=== PATIENT | male | born 1940 | race Caucasian/White ===

== ENCOUNTER 2017-06-09 22:13 | Inpatient (IN) | payer MEDICARE ==
[~2017-06-09] VITALS: Ht 167.6 cm; Wt 77.3 kg
[~2017-06-09 22:13] MED LIST: ALBUTEROL S5 MG/1 ML PO; ALPRAZOLAM ER3 MG PO; AMBIEN5 MG PO; ASCORBIC ACID500 M2 PO; ASPIR 8181 MG PO; ATORVASTATIN CA40 MG PO; AUGMENTIN 875-1 EACH PO; CARVEDILOL6.25 MG PO; CHLORTHALIDONE25 MG PO; DILAUDID2 MG PO; FIORICET 50-321 EACH PO; FLOMAX0.4 MG PO; LEVAQUIN750 MG PO; LIPITOR40 MG PO; LISINOPRIL20 MG PO; LISINOPRIL40 MG PO; MAGNESIUM 300300 MG PO; MORPHINE SULFAT15 M1 PO; MORPHINE SULFAT15 M3 PO; MORPHINE SULFAT30 M1 PO; MS CONTIN30 MG PO; MULTI FOR HIM1 EACH PO; NORCO 7.5-3251 EACH PO; NORVASC10 MG PO; OMEPRAZOLE20 M1 PO; PAMELOR50 MG PO; POLYETHYLENE GL17 GM PO; POTASSIUM CHLO10 MEQ PO; SENOKOT8.6 MG PO; STOOL SOFTENER50 MG PO; SUCRALFATE1 GM PO; TRIAMCINOLONE A15 G2 TOP; VITAMIN D10000 UNIT PO; VITAMIN E400 UNI4 PO; XARELTO10 MG PO
--- NOTE | 2017-06-10 01:06 | NUR ---
PT ADMITTED TO ROOM 124 FROM ER. LOG ROLLED WITH MIN PAIN, COMPLAINS THAT PAIN IS MORE IN HIS BACK, CHRONICALLY X 25 YEARS. SOME PAIN IN HIS RIGHT LEG IF HE TRIES TO MOVE IT. BOTH FEET COOL TO TOUCH ARE HIS HANDS, CHRONICALLY COLD HE STATES. STATES HE WALKS HIS DOG 3 MILES A DAY. TEL, IV SL IN RIGHT AC, FIELD START, AND CONTINUES IV L AC WITH FLUIDS ADMINISTERING. PT IS ALERT AND ORIENTED.
--- NOTE | 2017-06-10 01:25 | NUR ---
NOTIFIED DR. LUTHER OF BP OF 88/52, PULSE 104. ORDERED BLOOD TYPE AND CROSS FOR POTENITAL 2 UNITS TRANSFUSION.
--- NOTE | 2017-06-10 02:50 | NUR ---
NOTIFIED DR. LUTHER BLOOD PRESSURE OF 89/54, PULSE OF 112. REPORTED PT COMPLAINT OF WANTING MAALOX. DR. LUTHER ORDER ONE DOSE PROTONIX. PT DID RECEIVE A BOLUS 500 JUST AFTER ADMISSION TO ROOM 124. IS ON ROOM AIR. PREFERS TO LAY ON HIS LEFT SIDE HAS PILLOW SUPPORTS. HAS CALL LIGHT NEAR HIM, AND HE IS AWARE THAT HE HAS TO USE THE URINAL. RIGHT LEG PAIN INCREASES WHEN HE TRIES TO MOVE IT, BUT MOST OF HIS PAIN IS IN HIS BACK. STATES THAT HE HAS NOT BEEN ABLE TO SLEEP, WAS REMOVED OFF HIS CHRONIC PAIN MEDS AFTER 25 YEARS OF PAIN MEDS DUE TO BACK PAIN, HAS BEEN HAVING GREAT DIFFICULTY SLEEPING AND COPING SINCE THE MEDS WERE DC'D "COLD TURKEY". TODAY HE WAS DIZZY AND WEAK AND FELL ON HIS , THUS THE FX FEMOR. BOTH FEET ARE COOL TO TOUCH PER USUALLY HE STATED. SAID COLD FEET WARM HEART. 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 HAS 3 DAUGHTERS, ONE OF WHICH IS TRYING TO GET HIM TO MOVE TO [place], WHICH HE IS NOT WANTING TO DO, BUT STATES THAT NOW SHE MIGHT HAVE LEVERAGE. STATES, AND GETS TEARS, THAT HIS SON IN [facility], ALONG WITH HIS , A RESULT OF A DRUNK PLANT DIRECTOR.
--- NOTE | 2017-06-10 03:30 | NUR ---
PT WITH EYES CLOSED, RESP EVEN AND UNLABORED AT 18. IV CONTINUES INFUSING PER ORDER.
--- NOTE | 2017-06-10 03:45 | NUR ---
REPORTED BP TO DR LUTHER 74/49 PULSE 114. WHEN RAISED PT HEAD TO SEE IF HE COULD USE THE URINAL, HE GOT LIGHT HEADED, DIAPHORETIC. ONCE HOB LOWERED HE STATED HE FELT BETTER. BLADDER SCAN FOR 451. REPORTED TO DR. LUTHER. HEMOGLOBIN ORDERED Q 6, LEVEL NEAR 1:30 AM 9.6 PREVIOUS WAS 10.7. NEXT DRAW WILL BE AT 0730. WILL REPORT SX PRN. IV CONTINUES INFUSING. PRN DILAUDID 0.5MG GIVEN PRIOR TO 034, WELL THE PROTONIX IV. CURRENTLY TEL#7 READING AT 104-112. LENS MATCHER CHECKED ON PT AND PT STATES THE COOL WASH CLOTH FEELS GOOD, BUT HAS NO COMPLAINTS.
--- NOTE | 2017-06-10 04:11 | NUR ---
CHECKED IN ON PATIENT, STATES HIS BACK PAIN IS BETTER AFTER THE DILUADID. CURRENLTY ON HIS BACK, WITH RIGHT LEG STRAIGHT, STATES THAT THE LEG IS "DOABLE". SCD'S IN PLACE, COOL WASH CLOTH ON FOREHEAD. RESP EVEN AND UNLABORED, WILL TRY TO SLEEP HE STATES.
--- NOTE | 2017-06-10 05:27 | NUR ---
PT RESP AT 16, IV CONTINUE INFUSING. SCD'S CONTINUE
--- NOTE | 2017-06-10 06:03 | NUR ---
PT TRYING TO USE THE URNIAL. HEAD OF BED ELEVATED, WITH NO COMPLAINTS OF DIZZINESS, FORGETS AND MOVES HIS RIGHT LEG, CAUSING PAIN. COMPLAINS OF NOT SLEEPING MUCH.
--- NOTE | 2017-06-10 06:47 | NUR ---
REPORTED TO DR. LUTHER PT INABILITY TO VOID, WANTING TO STAND, ORDERED A ARIAS. ABLE TO INSERT ARIAS WITH GOOD URINE RETURN, BUT UNABLE TO PUT THE SALINE THE CATH-BULB. USED LIDOCAINE PRIOR TO INSERTION. TRIED TO WITHDRAWL WELL ADVANCE THE CATH OUT, AND IN FURTHER BUT UNABLE TO INJECT THE SALINE INTO THE CATH-BULB. ONCE URINE RETURN SUBSIDED, REMOVED ARIAS. [address] ATKINSON INTO SEE PT, KNOWN TO HIM. PT STATED THAT SAID "NO SURGEY" WILL HAVE TO USE A WALKER TO GET AROUND. DR. LUTHER AWARE OF LATEST BLOOD PRESSURE WELL.
--- NOTE | 2017-06-10 07:30 | NUR ---
BEDSIDE REPORT. PT RESTING IN BED EYES CLOSED RR EVEN. PT APPEARS TO BE SLEEPING AT THIS TIME. NO DISTRESS NOTED.
--- NOTE | 2017-06-10 07:51 | NUR ---
DISCUSSED PLAN OF CARE WITH .
--- NOTE | 2017-06-10 07:51 | NUR ---
PT DAUGHTER CALLED FROM [place], PT GAVE PERMISSION TO SPEAK WITH HER ABOUT HIS MEDICAL TREATMENT. DAUGHTER NIKOLAY UPDATED ON PT CONDITION AND PLAN OF CARE AT THIS TIME
--- NOTE | 2017-06-10 08:50 | NUR ---
PT HAD LARGE LOOSE STEPHANIE BM. PT REQUESTING PAIN COVERAGE. RN EXPLAINED TO PT THAT WE ARE TRANSFERING HIM IN NEXT 5-10 MIN AND WE NEED HIM ON THE MONITORS BEFORE GIVING PAIN MEDICATIONS. UPDATED
--- NOTE | 2017-06-10 09:00 | NUR ---
PT TRANSFERED AT THIS TIME TO ROOM 128 IN CCU. BEDSIDE REPORT GIVEN TO [facility] SMALL CCU. WILL CALL TO NOTIFY SPOUSE
--- NOTE | 2017-06-10 09:38 | NUR ---
PT ARRIVED TO ROOM 128 VIA BED FROM MED/SURG. MONITOR ON AND VITAL SIGNS COMPLETED. ASSESSMENT ALSO COMPLETED, PT STATES RIGHT HIP PAIN "5/10". DR. LOZOYA IN TO TALK WITH PT ABOUT EGD TODAY, PT STATES UNDERSTANDING.
--- NOTE | 2017-06-10 11:33 | NUR ---
FIRST UNIT PRBC STARTED AT 1113, VITAL SIGNS TAKEN.
--- NOTE | 2017-06-10 12:14 | NUR ---
ARIAS CATH INSERTED WITH MINIMAL DIFFICULTY ARIAS DRAINING CLEAR YELLOW URINE. OR CREW HERE AND PT TRANSFERRED TO ENDO SUITE VIA BED.
--- NOTE | 2017-06-10 13:41 | NUR ---
06/10/17 1341 Ila Alarcon 1338 - PT ARRIVED TO PACU. MAINTAINING OWN AIRWAY. BP 71/42 - GUM MACHINE OPERATOR AWARE, GIVING MEDICATION (SEE GUM MACHINE OPERATOR RECORD SHEET.)
--- NOTE | 2017-06-10 14:36 | NUR ---
PT ARRIVED TO ROOM 128 FROM ENDO ROOM. VITAL SIGNS COMPLETED, PT AWAKE AND STATES HIP DISCOMFORT "310". 02 ON AT 2L PER NC. SATS 100%. HR 77 120/55, RESP 16.
--- NOTE | 2017-06-10 15:29 | NUR ---
2ND UNIT OF BLOOD STARTED, PT HAD 2 SMALL BURGANDY COLORED THICK STOOLS. VS COMPLETED. ASSESSMENT COMPLETED, SCD'S ON BILAT, ARIAS DRAINING CLEAR YELLOW URINE. PT REPOSITIONED ON LEFT SIDE PER REQUEST.
--- NOTE | 2017-06-10 16:48 | NUR ---
PT RESTING ON LEFT SIDE, STATES PAIN "4/10", FALLS ASLEEP EASILY. ASSESSMENT COMPLETED AND VS COMPLETED.
--- NOTE | 2017-06-10 17:20 | NUR ---
PT AWAKE, REQUESTING BEDPAN, HAD SMALL BURGANDY COLORED STOOL, THICK.
--- NOTE | 2017-06-10 17:35 | NUR ---
LAB HERE FOR LAB DRAW PER DR. RICKS. FAMILY MEMBER ALSO HERE.
--- NOTE | 2017-06-10 18:15 | NUR ---
PT C/O OF BACK AND RIGHT HIP PAIN "03/25", MEDICATED WITH DILAUDID 0.5 MG IV.
--- NOTE | 2017-06-10 20:00 | NUR ---
ON BED GARCIA FOR REPORTED TO BE CLOTTY RED STOOL. POSISIONED TO L SIDE AND THEN HELPT TO BE ON SIDE FURTHER. DOES HAVE R LEG PAIN WITH MOVEMENT. STATES HE CANNOT SLEEP ON BACK.PAIN A LITTLE BETTER WITH REPOSITIONING. PT SL DROWSY AND ASKED IF IT WAS NIGHT. DID NOT REMEMBER RECIEVING PAIN MED FROM [facility] AT 1825. WILL RE EVLUATE PAIN IN 1 HR. ATE JELLO AND MIRNA WELL.
--- NOTE | 2017-06-10 21:00 | NUR ---
EYES CLOSED, HR MID 70'S , APPEARS TO BE SLEEPING.
--- NOTE | 2017-06-10 22:04 | NUR ---
ON BEDPAN FOR SMALL THICK MELANA STOOL. C/O BACK PAIN 03/25 GIVEN 0.5MG DILAUDID IV. REPOSITIONED TO R SIDE. PT AGAIN ASKE IF IT WAS MORNING OR NIGHT. REORIENTED AND ALSO SHOWN THAT IT WAS DARK OUTSIDE SO PT COULD SEE THIS AND HELP TO KEEP SELF ORIENTED.
--- NOTE | 2017-06-10 23:23 | NUR ---
REQUESTING TO BE TURNED. MIRNA WELL. STATES STOMACH IS FEELING BETTER.
--- NOTE | 2017-06-11 00:34 | NUR ---
REQUESTING BED GARCIA, PASSES GAS NO STOOL.
--- NOTE | 2017-06-11 03:32 | NUR ---
ON BEDPAN, PASSED GAS, REPOSITIONED TO R SIDE. PT C/O BACK DISCOMFORT THAT IS HELPED BY BEING ON A SIDE. NOT OFFERED DILAUDID AT THIS TIME DUE TO PTS RECENT HX OF HAVING TO GO THROUGH OPIOD WITHDRAWL. IF PT ASKS WILL GIVE IT. PT EXPRESSING THAT HE IS LOOKING FORWARD TO BEING ABLE TO GET OUT OF BED SOON.
--- NOTE | 2017-06-11 03:43 | NUR ---
PT NOW REQUESTING PAIN MED, GIVEN 0.5MG DILAUDID IV FOR BACK PAIN.
--- NOTE | 2017-06-11 04:43 | NUR ---
PT HELPED TO REPOSITION SELF TO L SIDE.
--- NOTE | 2017-06-11 06:04 | NUR ---
LAB IN TO DRAW PT. PT EXPRESSING THAT HE WOULD LIKE TO GET UP TO CHAIR, AND HAVE ARIAS OUT. EXPLAINED WAS ON BEDREST AND NEEDED TO BE SEEN BY DR ATKINSON BEFORE WE COULD GET HIM UP. INFORMED ARIAS WOULD PROBABLY BE DC'D LATER TODAY. IS SL RESTLESS.
--- NOTE | 2017-06-11 06:42 | NUR ---
GIVEN ZOFRAN 4MG FOR C/O NAUSEA.
--- NOTE | 2017-06-11 07:05 | EKG ---
[facility] [address] [place], [place] [address] Signed Sinus tachycardia Possible Left atrial enlargement Nonspecific T wave abnormality Abnormal ECG No previous ECGs available Confirmed by ANDREA LUTHER MD ([id number]) on 06/11/2017 7:04:50 AM Electronically Signed By: ANDREA LUTHER MD 06/11/17 0705 PATIENT NAME: SUBHA GONZALEZ Electrocardiogram DATE OF : 36 PHYSICIAN: ANDREA LUTHER MD REPORT #: [id number] REPORT IS CONFIDENTIAL AND NOT TO BE RELEASED WITHOUT AUTHORIZATION
[2017-06-11] MEDS ORDERED: CLONIDINE HCL0.1 MG PO (09:26)
[2017-06-11] MEDS ORDERED: BACLOFEN10 MG PO (09:27)
[2017-06-11] MEDS ORDERED: PHENOBARBITAL97.2 MG PO (09:29)
[2017-06-11] MEDS ORDERED: POTASSIUM CHLO10 ME1 PO (09:31)
[2017-06-11] MEDS ORDERED: LOMOTIL TABLET1 EACH PO (09:31)
[2017-06-11] MEDS ORDERED: LISINOPRIL40 MG PO (09:32)
[2017-06-11] MEDS ORDERED: SUMATRIPTAN SUC50 MG PO (09:37)
[2017-06-11] MEDS ORDERED: OMEPRAZOLE20 MG PO (09:47)
[2017-06-11] MEDS ORDERED: BUTALBITAL COM1 EACH PO (09:48)
--- NOTE | 2017-06-11 09:49 | NUR ---
MED REC COMPLETE WITH [facility] REFILL HISTORY. ONLY MEDICATIONS FILLED WITHIN THE PAST 30 DAYS INCLUDED ON THE "CURRENT MEDICATION LIST". PATIENT AND POOR HISTORIANS. ADDITIONAL MEDICATIONS FILLED WITHIN THE PAST 60 DAYS INCLUDE: CARVEDILOL 6.25 MG TAB BID WITH FOOD TAMSULOSIN 0.4 MG CAP, 30 MINUTES AFTER SAME MEAL TWICE A DAY ATORVASTATIN 40 MG TAB ONCE DAILY MORPHINE SULFATE ER 30 MG TAB EVERY 8 HOURS NORCO 7.5-325 MG 3 TO 4 TABLETS DAILY LEVOTHYROXINE 75 MCG TAB ONCE DAILY NITROGLYCERIN 0.4 MG TAB SL DIRECTED FOR CHEST PAIN
--- NOTE | 2017-06-11 11:46 | NUR ---
PT UP TO SIDE OF BED WITH 1 PERSON ASSIST. P.T. HERE AND PT STOOD WITH WALKER AND TRANSFERRED TO MAL CHAIR. PT THEN STOOD AGAIN AND ON COMMODE, HAD SMALL DARK FORMED STOOL, BACK TO MAL CHAIR.
--- NOTE | 2017-06-11 12:19 | NUR ---
PT MEDICATED WITH NORCO 1 PO FOR BACK AND RIGHT LEG PAIN "02/23". PT REMAINS IN MAL CHAIR. LAB HERE FOR LAB DRAW.
--- NOTE | 2017-06-11 13:01 | NUR ---
PT INCONT OF SMALL AMT OF LIQ STOOL. PT TRANSFERRED BACK TO BED AND ARIAS CATHETER DC'D. PT MIRNA WELL.
--- NOTE | 2017-06-11 15:03 | NUR ---
PT UP TO BSC WITH 2 PERSON ASSIST AND USING A WALKER. PT VOIDED 150 MLS YELLOW URINE AND PASSED FLATUS. RETURNED TO BED WITH 2 PERSON ASSIST AND USING WALKER, SCD'S ON BILAT AND HOB ELEVATED FOR COMFORT.
--- NOTE | 2017-06-11 20:10 | NUR ---
UP TO BEDSIDE COMMODE WITH 2 PERSONA ASSIST. VOIDED. IS ESS ORIENTED BUT POOR JUDGMENT, NEEDS FREQ REMINDERS. LOOKING FOR CELL PHONE, FORGOT THAT HAD TAKEN IT HOME. NURSES CALLED TO VERIFY WHERE PHONE WAS.
--- NOTE | 2017-06-11 21:00 | NUR ---
PT FOUND STANDING NEAR BATHROOM. THOUGHT HE HAD HEARD VOICES COMING FROM THERE. ASSISTED BACK TO BED. PT NOW ORIENTED AND UPSET THAT HE HAD BEEN CONFUSED. REASURED. BED ALARM ON.
--- NOTE | 2017-06-11 23:52 | NUR ---
IV LAC FOUND TO BE REDDENED AND SL FIRM. RESTARTED UPPER L ARM AFTER MULT ATTEMPTS BY 3 NURSES. UP TO CHIAR FOR ABOUT 5 MIN THEN BACK TO BED. VOIDED 25ML. C/O BACK BAN BARRON PAIN, GIVEN NORCO PO.
--- NOTE | 2017-06-12 00:15 | NUR ---
IS COMPLAINING OF SEVERE BARRON AND BACK PAIN NOT HELPED BY NORCO. IS MOANING AND STARTING TO CRY. GIVEN 1MG DILAUDID IV.
--- NOTE | 2017-06-12 01:35 | NUR ---
PT STILL C/O PAIN AND STATING WE ARE TRYING TO KILL HIM. STATES HE WANTS TO GO HOME. DR LUTHER CALLED RE THIS AND LAB. ORDER RECIEVED. PT GIVEN 5MG HALDOL IV. STOOD TO TRY TO VOID, UNABLE TO. SCANNED BLADDER 300ML. WILL WATCH.
--- NOTE | 2017-06-12 03:10 | NUR ---
FAMILY OUT TO TALK WITH STAFF RE PT'S CONIDITION AND HER BEHAVIOR AT HOME. DAUGHTER IS VERY CONCERNED ABOUTH PT'S HOME MEDICATIONS AND THAT PT IS OVERMEDICATED OR REACTING BADLY TO THEM. FAMILY PLANS TO SPEAK OF THESE CONCERNS TO DR LUTHER. PT IS NOW SLEEPING. HR HAS BEEN IN 120'S WITH FRQ PAC'S NOW 100-106 AND MORE REG.
--- NOTE | 2017-06-12 04:31 | NUR ---
AWAKE, UP TO BSC WITH ONE PERSON ASSIST, VOIDED CONCENTRATED URINE. MOVING SELF IN BED BETTER.
--- NOTE | 2017-06-12 06:20 | NUR ---
DR LUTHER NOTIFIED OF LAB VALUES. ORDERS RECIEVED.
--- NOTE | 2017-06-12 06:48 | NUR ---
UNIT OF PACKED CELLS INFUSING. PT ASKED "WHAT IS HAPPENING TO ME? " EXPLIANED HE WAS RECIEVING BLOOD COUNTS WERE LOW. RESPONED OK, WAS WORRIED THAT WE WERE TAKING IT.
--- NOTE | 2017-06-12 07:10 | NUR ---
REPORT TO DAY SHIFT.
--- NOTE | 2017-06-12 07:48 | NUR ---
BEDSIDE REPORT RECEIVED FROM GEOVANNY SMART. PT RESTING IN BED AT THIS TIME AND HAS BLOOD INFUSING AT 150 ML/HR IN LEFT UPPER ARM. PATIENT'S H/H DROPPED TO 6.6/19 THIS AM AND PT IS TO RECEIVE 2 UNITS PRBCs TOTAL. PT AROUSES EASILY AND STATES HE IS STILL HAVING A HEADACHE WHICH IS FRUSTRATING TO HIM. PATIENT'S HEART RATE NOTED TO BE IN THE 50-60s, SINUS RHYTHM AT THIS TIME. LAST BP 122/57. SP02 IS 93-97% ON ROOM AIR. FULL LIQUID TRAY ORDERED FOR PATIENT FOR BREAKFAST. PATIENT DENIES PAIN IN HIS ABDOMEN BUT DOES HAVE PAIN IN HIS RIGHT LEG WHEN HE MOVES OR USES IT. PT WAS REPORTEDLY UP IN THE NIGHT AND WANDERED INTO THE BATHROOM BY HIMSELF AND DID HAVE SOME CONFUSION. BED ALARM ON FOR THIS REASON AND PT BEING CLOSELY MONITORED.
--- NOTE | 2017-06-12 09:16 | NUR ---
PATIENT UP TO BSC TO VOID AND THEN INTO CHAIR. PT TO START 2ND UNIT OF PRBCs. PT STILL C/O PAIN EVERYWHERE IN BODY ESSENTIALLY. BED LINENS CHANGED. CONTINUE TO MONITOR.
--- NOTE | 2017-06-12 10:13 | NUR ---
PATIENT HELPED BACK TO BED AT THIS TIME WITH TTWB ONLY ON THE RIGHT LEG. PT TOLERATED WELL. PT STATES HE IS EXHAUSTED BUT STILL HAS A HEADACHE. DR. LUTHER HAS BEEN IN TO SEE PATIENT AND HIS DAUGHTER FROM [place] WAS UPDATED ONT HE PHONE BY THIS RN. PT NOW RESTING RECEIVING 2ND UNIT OF BLOOD. CONTINUE TO MONITOR. BED ALARM ON.
--- NOTE | 2017-06-12 15:06 | NUR ---
PT STOOD AND TRANSFERED TO SHOWER CHAIR WITH WALKER, PT SHOWERED WITH MINIMAL ASSISTANCE, THEN RETURNED TO ROOM AND IS NOW SITTING UP IN CHAIR WITH TAG ALARM ON AND CALL LIGHT IN REACH.
--- NOTE | 2017-06-12 15:41 | NUR ---
PT'S AND FRIEND ARE HERE TO VISIT WITH PATIENT. PT IS SITTIN IN CHAIR AT THIS TIME AND TOLERATING THIS WELL. PATIENT WAS UP TO SHOWER CHAIR AND TOLERATED SHOWER WELL. CONTINUE TO MONITOR.
--- NOTE | 2017-06-12 16:14 | NUR ---
PT IS SITTING UP IN CHAIR WITH TAG ALARM AND CALL LIGHT IN REACH. PT IS VISITING WITH SPOUSE. PT ASKED FOR MEDICINE FOR HIS UPSET STOMACH.
--- NOTE | 2017-06-12 17:42 | NUR ---
PT ARRIVED TO FLOOR VIA CHAIR. ALERT AND ORIENTED. REPORTS CHRONIC PAIN BUT "FEELS OK OTHERWISE." CHAIR ALARM ON. CALL LIGHT WITHIN REACH. ASSESSMENT COMPLETED. DINNER ARRIVED AND PT EATING INDEPENDENTLY, MIRNA WELL.
--- NOTE | 2017-06-12 17:45 | NUR ---
REPORT GIVEN TO GEOVANNY DOWD AND PATIENT TRANSFERRED TO ROOM 121 AT 1728. PATIENT MOVED OVER IN CHAIR. PT'S AND FRIEND WERE HERE AND GIVEN AN UPDATE ON PT'S CONDITION. PT'S NEXT HEMOGLOBIN TO BE DRAWN AT 1800. PT ENCOURAGED TO INCREASE ORAL FLUID INTAKE. ALL BELONGINGS TAKEN WITH PATIENT. PT NOT TRANSFERRED ON TELE.
--- NOTE | 2017-06-12 17:45 | NUR ---
BOTH IV SITES INTACT, FLUSH WELL, SL.
--- NOTE | 2017-06-12 18:45 | NUR ---
PT AMB 1PA WITH FWW, TOE TOUCH WEIGHT APPROPRIATELY. VOIDED SMALL AMOUNT OF CONCENTRATED URINE. HAD BM. MIRNA SOFT DIET, DENIED NAUSEA OR PAIN. CHAIR ALARM ON. CALL LIGHT WITHIN REACH.
--- NOTE | 2017-06-12 20:00 | NUR ---
RECEIVED REPORT AT 1900. FOUND PT SITTING IN CHAIR, PT SEEMED IN GOOD SPIRITS. PT REPORTED SMALL BM X1 THAT WAS BLACK IN COLOR.
--- NOTE | 2017-06-12 21:58 | NUR ---
V/S ARE WDL, NO BRUISING OR EDEMA NOTED ON RIGHT THIGH AND HIP. PT DENIES PAIN IN FX AREA BUT HAS PAIN IN BACK AND NECK, URINE OUTPUT HAS ONLY BEEN 50ML/ 4 HRS, MD FISHER WAS INFORMED, WILL CONTINUE TO MONITOR. PT HAS TINGLING AND NUMBNESS IN RIGHT FOOT FROM NERVE DAMAGE DUE TO BACK SX. BOTH FEET WERE COOL TO TOUCH, DORSALIS PEDIS BILATERALLY WAS +1, STRENGTH WAS +5. PT IS RESTING AT THIS TIME.
--- NOTE | 2017-06-12 23:00 | NUR ---
MD FISHER CALLED BACK AND ORDERED A BLADDER SCAN. PT HAD 175ML IN BLADDER. PT JUST NOW VOIDED APPROX 150ML. THERE WAS NO HAT IN TOILET PER VISUAL ARTIST. CALLING MD FISHER BACK NOW. HE SAID TO CONTINUE TO MONITOR.
--- NOTE | 2017-06-13 00:26 | NUR ---
PT IS RESTING AT THIS TIME.
--- NOTE | 2017-06-13 03:40 | NUR ---
PT IS RESTING AT THIS TIME
--- NOTE | 2017-06-13 05:02 | NUR ---
ASSISTED PT WITH URINAL. OUTPUT WAS 350ML. ENCOURAGED PO LIQUIDS. PT COMPLAINED OF A HEADACHE, 500MG PO TYLENOL WAS GIVEN. PT IS RESTING IN BED.
--- NOTE | 2017-06-13 05:03 | NUR ---
PT OVERALL HAD AN UNEVENTFULL NIGHT. V/S ARE WDL, PT RECEIVED TRAMADOL 50MG PO X1 FOR BACK ACHE. FX SITE SEEMS NOT REALLY PAINFUL. PO INTAKE NEEDS TO INCREASE, PT VOIDED FOR THE FRIST TIME THIS SHIFT AT 0500. MD FISHER WAS CALLED AROUND 2230 ABOUT LACK OF OUTPUT. NO EDEMA NOTED ON FX SITE. RIGHT DORSALIS PEDIS +1. STRENGTH IN RIGHT FOOD IS GOOD.
--- NOTE | 2017-06-13 08:41 | NUR ---
Is sitting up in chair and eating breakfast. Changed his linens.
--- NOTE | 2017-06-13 12:10 | NUR ---
patient to swingbed.
--- NOTE | 2017-07-19 07:48 | OR ---
[facility] [address], [place] [address] Signed DATE OF PROCEDURE: 06/10/17 PREOPERATIVE DIAGNOSIS: Melena with recent excessive nonsteroidal use. POSTOPERATIVE DIAGNOSIS: Prepyloric ulcer with visible vessel. PROCEDURE Esophagogastroduodenoscopy with biopsy and hemoclip application of visible vessel. SURGEON: Roslyn Lozoya M.D. ANESTHESIA: Intravenous sedation, Propofol infusion, Shira Lema CRNA. INDICATION This 77-year-old white man is admitted to the hospital by Josette Smith M.D., having had a syncopal episode falling and fracturing his right femur area inferior to a prosthetic device that was placed from what I gather. He has had bilateral hip replacement therapy. He was noted to have considerable melena and it is noted that he is on high doses of Motrin and Excedrin related to self-treatment of chronic pain syndrome having been withdrawn from opiate medications in the past few weeks. He is admitted at this time to undergo upper endoscopy to better characterize the source of his bleeding, which likely would relate to ulceration, though that remains to be determined. If upper endoscopy is negative, then colonoscopy will be required. He understands the risks of bleeding, infection, perforation, and so forth and wished to proceed. FINDINGS There is no sign of active bleeding. There was definitely a prepyloric ulcer with visible vessel noted. There was some adherent nearby clot which was irrigated, but was not specifically removed. The esophagus, duodenum and remaining stomach was normal. CLOtest was negative for H. pylori. PROCEDURE The patient was brought to the endoscopy suite and given topical Hurricaine spray hypopharyngeal anesthesia. Given his hip fracture issue, he was allowed to remain in the supine position on this occasion. A bite block was placed. He was given intravenous sedation with Propofol and an Olympus video upper endoscope passed in the hypopharynx and easily passed in the esophagus. Throughout the esophagus length, there was no evidence of lesions, specifically no bleeding, Mariya-Mcallister tear, varices, or ulceration or inflammation. Scope was passed to the stomach which was insufflated with air. There is no actual obvious large clot of blood or anything of that sort, though there were some adherent food debris and dark material in the region of the lesser curve in the prepyloric area. The scope was passed through the pylorus into the duodenum, which was normal. Scope passage to the distal most duodenal showed no evidence of ulcer, Electronically Signed By: ROSLYN LOZOYA MD 07/19/17 0748 PATIENT NAME: SUBHA GONZALEZ OPERATIVE REPORT DATE OF : 36 PHYSICIAN: ROSLYN LOZOYA MD REPORT #: [id number] REPORT IS CONFIDENTIAL AND NOT TO BE RELEASED WITHOUT AUTHORIZATION [facility] [address], [place] [address] Signed but did show some bloody clot like fluid indicating a more proximal source of bleeding. The scope was withdrawn carefully into the pylorus and the pyloric channel appeared to be free of problem. On the lesser curve just proximal to the pylorus, however, was a ashby white ulcer bed with a with adherent clot type material which was irrigated free. A visible vessel was noted and careful inspection showed the adherent clot nearby to be quite adherent. A hemoclip was applied to the visible vessel due to the high propensity for recurrent bleeding in this setting. Irrigation was undertaken of the clot itself. Consideration was made for manual removal of the adherent nonbloody tenacious material, but with irrigation was found to be quite fastly held and further manipulation was deemed inadvisable. The scope was withdrawn a bit. Retroflexed view of the GE junction showed a small hiatal hernia. The proximal stomach appeared normal. Biopsies were obtained for CLOtest. Scope was withdrawn to the esophagus, affirmed to be normal and ultimately withdrawn. The patient taken recovery room in good condition. CONCLUDING DIAGNOSIS Prepyloric ulcer with recent bleeding and visible vessel (hemoclipped). PLAN We will initiate Carafate and PPI medication, can have liquids. Would continue to monitor closely given his general state of infirmity. MD VICTORINA Mcclellan/Justinal /[id number] cc: MD Josette Mckoy MD Electronically Signed By: ROSLYN LOZOYA MD 07/19/17 0748 PATIENT NAME: SUBHA GONZAELZ OPERATIVE REPORT DATE OF : 36 PHYSICIAN: ROSLYN LOZOYA MD REPORT #: [id number] REPORT IS CONFIDENTIAL AND NOT TO BE RELEASED WITHOUT AUTHORIZATION
--- NOTE | 2017-07-19 08:27 | CONS ---
[facility] [address], [place] [address] Signed DATE & TIME OF CONSULTATION: 179:15 am. PROBLEM: GI bleed, possibly upper with melena. HISTORY OF PRESENT ILLNESS This 77-year-old white man is known to me from the past. He is known to have opiate dependency and chronic pain syndrome. He has undergone left hip replacement in 2010. Right hip replacement in 2011 and dislocation in 2011 requiring manual relocation. He has had multiple back and neck operations and last major operation was in 2013 including left total hip revision. The patient about a month ago was withdrawn from his opiate medication and has been going through withdrawal syndrome clinically according to notes I have reviewed. He has had increased pain as expected as well as nausea vomiting and some diarrhea. Nausea and vomiting resolved a few days ago, but he has had diarrhea since that time. He noted blood in the stool and presents to the emergency room having been transported by emergency medical services. Hematochezia was noted second time upon arrival by the transporting personnel. He had decreased O2 saturations noted in the low 70s and ultimately the 80s with supplemental oxygen. He was directly admitted to the regular nursing floor where she had another episode of hematemesis as well as some vomiting but without associated hematemesis and has now been transferred to intensive care unit under the direction of Dr. Smith. Consultation is undertaken for further consideration of endoscopic evaluation of his bleeding. Currently he does not feel that well. He has vague poorly localized pain generally no doubt related to his withdrawal of opiate medications. Review of his medication history recently has shown him to be taking Excedrin routinely and recently increased intake of Motrin. The patient does describe a prior history of ulcer having undergone upper endoscopy for bleeding ulcer of the "stomach" a number of years ago. CURRENT MEDICATIONS Include Lipitor, Butalbital (Codeine, Butalbital, Aspirin, Caffeine combination), Sucralfate, Alprazolam, Hydrocodone, MS Contin, Lisinopril, DSS, Tamsulosin, oral Dilaudid, Rivaroxaban (Xarelto), Carvedilol, Chlorthalidone, Omeprazole, Amlodipine, and Aspirin. Which of these medications is current is not certain to me. I understand that he is off narcotics for several weeks now. A more updated medication li s t shows that he is taking Clonidine, Baclofen, Potassium Chloride, Phenobarbital, Lisinopril, Omeprazole, Sumatriptan, Carvedilol, Tamsulosin, Atorvastatin. I do not see that he is on an anticoagulant currently. The patient seems to have no thought that he is on anticoagulant at this time. Electronically Signed By: ROSLYN LOZOYA MD 07/19/17 0827 PATIENT NAME: SUBHA GONZALEZ CONSULTATION DATE OF : 36 PHYSICIAN: ROSLYN LOZOYA MD REPORT #: [id number] REPORT IS CONFIDENTIAL AND NOT TO BE RELEASED WITHOUT AUTHORIZATION [facility] [address], [place] [address] Signed REVIEW OF SYSTEMS He has generalized aches and pains. Some abdominal pain mostly in the epigastric area. PHYSICAL EXAMINATION GENERAL: Pleasant white man who is cold and clammy to some degree. VITAL SIGNS: His heart rate is 115, systolic blood pressure 97. HEENT: Trachea is midline. He has no hoarseness. CHEST: Shows no tachypnea or respiratory distress in any way. writer shows normal sinus rhythm. ABDOMEN: Soft and nondistended. Palpation reveals no focal mass or tenderness. There is no ascites. EXTREMITIES: Show no clubbing, cyanosis, or edema. ASSESSMENT He is at high risk of a peptic source of bleeding based on his Excedrin and Motrin use for pain control having been largely withdrawn from opiate pain medication s 3 weeks ago. I will need to investigate further with Dr. Smith whether he is on an anticoagulant, I do not think that he is and he is not certain that he is, though it was listed in his medications from his general medication list. I would recommend up per endoscopy be performed to assess for ulcer or other similar lesion accounting for his bleeding. If that is entirely negative and a bowel prep and colonoscopy would be appropriate. The risks of bleeding, infection, perforation, and so forth were reviewed with him, he understands. We will plan to do this today likely with assistance of anesthesia for sedation. On the possibility of hemodynamic instability, he has generally elevated ASA level of at least 3. MD VICTORINA Mcclellan/Justinal /[id number] cc: MD Villa Powell MD Electronically Signed By: ROSLYN LOZOYA MD 07/19/17 0827 PATIENT NAME: SUBHA GONZALEZ CONSULTATION DATE OF : 36 PHYSICIAN: ROSLYN LOZOYA MD REPORT #: [id number] REPORT IS CONFIDENTIAL AND NOT TO BE RELEASED WITHOUT AUTHORIZATION
== END 2017-06-13 11:55 | disposition swing bed (61) | DRG 377 ==
LOC: ED 22:13 → CCU 06-10 00:39 → MS 06-10 00:39 → CCU 06-10 08:55 → MS 06-12 09:31
PROVIDERS: Surgery; ADMIT Internal Medicine
PROC: 0DB68ZX Excision of Stomach, Via Natural or Artificial Opening Endoscopic, Diagnostic (ICD-10-PCS; 2017-06-10)
PROC: 30233N1 Transfusion of Nonautologous Red Blood Cells into Peripheral Vein, Percutaneous Approach (ICD-10-PCS; 2017-06-10)
PROC: 0W3P8ZZ Control Bleeding in Gastrointestinal Tract, Via Natural or Artificial Opening Endoscopic (ICD-10-PCS; principal; 2017-06-10 12:30)
DX: K25.4 Chronic or unspecified gastric ulcer with hemorrhage (principal); S72.141A Displaced intertrochanteric fracture of right femur, initial encounter for closed fracture; F11.23 Opioid dependence with withdrawal; D62 Acute posthemorrhagic anemia; R07.9 Chest pain, unspecified; G89.29 Other chronic pain; G47.00 Insomnia, unspecified; R55 Syncope and collapse; E86.1 Hypovolemia; W19.XXXA Unspecified fall, initial encounter; R79.89 Other specified abnormal findings of blood chemistry; N40.0 Benign prostatic hyperplasia without lower urinary tract symptoms; T39.395A Adverse effect of other nonsteroidal anti-inflammatory drugs [NSAID], initial encounter; D69.6 Thrombocytopenia, unspecified; G43.909 Migraine, unspecified, not intractable, without status migrainosus; E78.5 Hyperlipidemia, unspecified; K44.9 Diaphragmatic hernia without obstruction or gangrene
CPT/HCPCS: 00740; 36415; 36430; 51702; 51798; 71010; 73502; 80048; 80053; 83735; 84484; 85018; 85025; 85610; 85730; 86318; 86850; 86900; 86901; 86920; 93005; 93010; 97110; 97116; 97162; J1170; J1630; J2250; J2405; J2704; J3010; J7030; J7040; P9016

== ENCOUNTER 2017-06-13 11:55 | Inpatient (IN) | payer MEDICARE ==
[~2017-06-13] VITALS: Ht 167.6 cm; Wt 77.3 kg
[~2017-06-13 11:55] MED LIST changes: +BACLOFEN10 MG PO; +BUTALBITAL COM1 EACH PO; +CLONIDINE HCL0.1 MG PO; +LOMOTIL TABLET1 EACH PO; +OMEPRAZOLE20 MG PO; +PHENOBARBITAL97.2 MG PO; +POTASSIUM CHLO10 ME1 PO; +SUMATRIPTAN SUC50 MG PO
--- NOTE | 2017-06-13 13:22 | NUR ---
TOOK SHOWER THIS MORNING NEEDED A LITTLE BIT OF HELP BUT I STAYED IN THERE WITH PATIENT. NOW SITTING IN CHAIR.
--- NOTE | 2017-06-13 14:07 | NUR ---
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 PT IS VERY THANKFUL FOR THE CARE HE HAS RECEIVED AT [facility]. PT REQUESTED PRAYER, WILL FOLLOW NEEDED
--- NOTE | 2017-06-13 15:01 | NUR ---
MED REC COMPLETE WHEN PATIENT WAS IN-PATIENT STATUS.
--- NOTE | 2017-06-13 18:45 | NUR ---
PATIENT WORKING WITH PHYSICAL THERAPY, TOLERATING WELL. UP IN RECLINER MOST OF EVENING. PAIN WELL CONTROLLED WITH TRAMADOL PO. RATES PAIN 3/10 ON PAIN SCALE/
--- NOTE | 2017-06-13 20:00 | NUR ---
PATIENT RESTING QUITLY EYES CLOSED. ON LEFT SIDE BREATHING IS EQUAL AND UNLABORED.
--- NOTE | 2017-06-13 20:00 | NUR ---
PATIENT RESTING QUIETLY ON HIS LEFT SIDE EYES CLOSED, BRESTHS EVEN AND UNLABORED.
--- NOTE | 2017-06-13 20:16 | NUR ---
PATIENT IS IN NO DISTRESS. PATIENT SITTING QUITLY WATCHING TV AND TELLING STAFF JOKES. T/O ORDER GIVR BY TO DC BOTH SALINE LOCKS AND THIS WAS DONE AT 0816.
--- NOTE | 2017-06-13 22:00 | NUR ---
PATIENT RESTING ON HIS LEFT SIDE EYES CLOSED AND RESPIRATIONS EQUAL AND UNLABORED.
--- NOTE | 2017-06-14 00:10 | NUR ---
PATIENT RESTING QUITLY, EYES CLOSED, RESPIRATIONS EVEN AND UNLABORED.
--- NOTE | 2017-06-14 02:30 | NUR ---
Patient is lying on his left side. Respirations are equal and unlabored and he is resting quitely.
--- NOTE | 2017-06-14 02:43 | NUR ---
ASSISTED PT FROM BATHROOM. PT HAD SMALL BM, FORMED BUT ALSO HAD VISIBLE BLOOD IN STOOL. WILL CALL MD FISHER BEFORE 0700. PT HAS A HEADACHE AND RECEIVED TYLENOL PRN, PT IS BACK IN BED RESTING.
--- NOTE | 2017-06-14 04:00 | NUR ---
PATIENT RESTING QUITLY SUPINE, EYES CLOSED, RESPIRATIONS ARE EVEN AND UNLABORED.
--- NOTE | 2017-06-14 05:20 | NUR ---
PATIENT RESTING QUITELY AT THIS TIME, SUPINE EYES CLOSE, RESPIRATIONS EVEN AND UNLABORED. PATIENT'S RIGHT THIGH IS SLIGHT MORE SWOLLEN THAN THE LEFT HE HAS A NONDISPLACED RIGHT FEMUR FRACTURE. PATIENT IS UP TO THE REST ROOM WITH STAND BY ASSIST USING A WALKER WITH TOE TOUCH TO FLOOR WITH FRACTURE LEG, NO WEIGHT BEARING. PATIENT HAS BEEN AWAKE EVERY 2-3HRS DUE TO HEADACHE, LOWER BACK PAIN OR RIGHT HIP PAIN, THIS HAS MAIN BEEN RELIEVED WITH TYLENOL OR ULTRAM THROUGH THE NIGHT. PATIENT DID HAVE ONE STOOL THAT APPEARED TO BE RELEASING REMNANTS OF BLOOD IN THE TOILET AND HE AID HE WAS STARTING TO HAVE SOME DISCOMFORT IN THE AREA WHERE HE HAD HIS ULCER CAUTERIZED. WAS CALLED AND ORDER READ BACK FOR MALLOX 30MLS Q4 HOURS PRN FOR DYSPEPSIA. ONE DOSE WAS DELIVERED AND PATIENT IS RESTING QUITLY ONCE AFTER LETTING ME KNOW THAT HIS HEADACHE HAD IMPOVED FROM A 7/10 TO A 5/10. PATIENT IS VOIDING WELL VIA URINAL.
--- NOTE | 2017-06-14 10:45 | NUR ---
PATIENT COMPLAINTS OF BACK PAIN, NEW ORDER FOR LIDOCAINE PATCH. PATIENT AGREES TO PAIN INTERVENTION, TYLENOL ORDER CHANGED TO 650 MG PO.
--- NOTE | 2017-06-14 11:40 | NUR ---
PT WALKED TO BATHROOM WITH WALKER AND USED TOILET, PT THEN RETURNED TO CHAIR, CALL LIGHT IN REACH
--- NOTE | 2017-06-14 13:23 | NUR ---
PT GIVEN PRN PAIN MED. RATES PAIN 02/23
--- NOTE | 2017-06-14 14:15 | NUR ---
PT SITTING IN CHAIR, VISITING WITH HIS DAUGHTER UP FROM [place]. STAYED FOR A MOMENT, PLEASANT CONVERSATION. WANTED THEM TO HAVE MUCH TIME POSSIBLE TO VISIT. HE THANKED ME FOR STOPPING BY. GOD BLESS THEM
--- NOTE | 2017-06-14 16:49 | NUR ---
REFUSED SHOWER THIS MORNING BUT DECIDED TO TAKE A SHOWER THIS AFTERNOON AROUND 3PM. CALL LIGHT IS IN REACH.
--- NOTE | 2017-06-14 16:55 | NUR ---
JUST WENT INTO PATIENT'S ROOM TO CHECK AND WAS SITTING ON THE COUCH TALKING ON THE PHONE. CALL LIGHT IN REACH.
--- NOTE | 2017-06-14 19:30 | NUR ---
PATIENT SITTING IN HIS ROOM IN HIS CHAIR VISITING WITH HIS FAMILY. PATIENT WANTING TO GET SOMETHING FOR SLEEP TONIGHT AND SOME IMITREX. I WILL CALL DR. FONTENOT FOR ORDERS.
--- NOTE | 2017-06-14 20:45 | NUR ---
PATIENT GIVEN HIS IMITREX WHICH WAS ORDERED ALONG WITH SOME MELATONIN AND HIS OTHER EVENING MEDS, USED THE REST ROOM WITH STANDBY ASSIST AND WALKER AND THEN SETTLED INTO BED FOR THE NIGHT.
--- NOTE | 2017-06-14 22:00 | NUR ---
PATIENT IS RESTING QUITELY ON HIS BACK, EYES CLOSED, RESPIRATIONS EVEN AND UNLABORED.
--- NOTE | 2017-06-15 | NUR ---
PATIENT RESTING ON HIS BACK, EYES CLOSED, RESPIRATIONS EVEN AND UNLABORED.
--- NOTE | 2017-06-15 02:10 | NUR ---
PATIENT IS RESTING WITH EYES CLOSED AND APPEARS TO BE COMFORTABLE IN THE RECLINING CHAIR. HE INFORMED ME IT DID NOT HURT HIS BACK MUCH THE BED DOES.
--- NOTE | 2017-06-15 04:17 | NUR ---
PATIENT IS RESTING ONCE AGIAN EYES CLOSED SITTING IN THE RECLINER. HE HAD RECEIVED ANOTHER ULTRAM AND SO MALLOX FOR SOME BACK AND ABD PAIN OF 5/10. HE IS RESTING NOW.
--- NOTE | 2017-06-15 07:54 | NUR ---
REPORT RECIEVED FROM GEOVANNY ODELL. PT AWAKE AND TALKING ON PHONE. WOULD LIKE HELP OUT OF BED INTO CHAIR, WILL CALL WHEN HE IS DONE.
--- NOTE | 2017-06-15 10:17 | NUR ---
PT IS SITTING UP IN CHAIR WITH ALL LIGHT IN REACH. PT IS CURRENTLY WORKING WITH PHYSICAL THERAPY
--- NOTE | 2017-06-15 12:16 | NUR ---
PT REPORTS HEADACHE OF 7/10. ADMINISTERED TYLENOL AND ASKED WHAT HE DOES AT HOME. ADVISED LIGHT STRETCHING FOR THE TIGHT MUSCLES IN NECK. STATES HE HAS NEVER HAD A MASSAGE OR ACCUPUNTURE AND MAY TRY IT AFTER HE GOES HOME AND FOLLOWS UP IWHT HIS BACK SURGEON.
--- NOTE | 2017-06-15 13:30 | NUR ---
ASSISTED PT TO LAYING ON THE SOFA. PT PAINFUL UPON MOVEMENT. CLOSED BLINDS AND PT ATTEMPTING TO NAP. ADMINISTERED TRAMADOL FOR BACK PAIN.
--- NOTE | 2017-06-15 14:24 | NUR ---
PT IS SITTING UP IN CHAIR WITH CALL LIGHT IN REACH. PT ASKED FRO A WARM BLANKET
--- NOTE | 2017-06-15 18:12 | NUR ---
PT HAD MIGRAINE MOST OF DAY. TRIED TO REST WITH LIGHTS OFF IN VARIOUS LOCATIONS. GIVEN TYLENOL, ULTRAM AND IMITREX. LITTLE APPETITE. UO QS.
--- NOTE | 2017-06-15 19:15 | NUR ---
pATIENT SITTING IN HIS RECLINER QUIETLY WATCHING TV.
--- NOTE | 2017-06-15 20:20 | NUR ---
PATIENT IN BED NOW AND RESTING QUIETLY EYES CALLED, RESPIRATIONS EVEN AND UNLABORED.
--- NOTE | 2017-06-15 21:57 | NUR ---
PATIENT RESTING QUIETLY ON HIS LEFT SIDE WITH EYES CLOSED AND RESPIRATIONS ARE EVEN AND UNLABORED.
--- NOTE | 2017-06-16 00:05 | NUR ---
PATIENT UP IN THE RECLINER NOW WITH 7/10 PAIN IN HIS LEG/BACK/ AND BARRON. ULTRAM AND TYLENOL GIVEN FOR PAIN. PATIENT QUIETLY WATCHING TV.
--- NOTE | 2017-06-16 02:00 | NUR ---
RESTING QUIETLY, EYES CLOSED, RESPIRATIONS EVEN AND UNLABORED.
--- NOTE | 2017-06-16 02:58 | NUR ---
PATIENT JUST GOT 5MG FLEXERIL AND 650MG TYLENOL FOR BACK/RT THIGH/ AND BARRON PAIN 02/23 AFTER CALLING FOR PAIN AND SOMETHING FOR SLEEP.
--- NOTE | 2017-06-16 04:15 | NUR ---
PATIENT RESTING QUIETLY IN HIS LEFT SIDE, EYES CLOSED, RESPIRATIONS EVEN AND UNLABORED.
--- NOTE | 2017-06-16 05:37 | NUR ---
PATIENT HAS HAD ANOTHER ROUGH NIGHT WITH BACK, RT LEG, AND BARRON PAIN. HE APPEARS TO SLEEP FOR SHORT PERIODS ABOUT 30-60 MINUTES AT A TIME. GETTING TYLENOL AND ULTRA FOR PAIN, AND GOT AN ORDER AFTER 2AM FROM FOR 50mg OF FLEXERIL Q8HRS PRN FOR BACK PAIN AND OR SPASMS. PATIENT DID GET A LITTLE MORE SLEEP AFTER THAT FIRST DOSE WAS GIVEN. PATIENT RESTING QUIETLY NOW, EYES CLOSED, RESPIRATIONS EVEN AND UNLABORED. STILL USING TOUCH TOE WITH EFFECTED RT LEG WITH WALKER. STILL USING URINAL FREQUENTLY AND HAS GOOD PO FLUID INTAKE.
--- NOTE | 2017-06-16 06:06 | NUR ---
PT RESTING, EYES CLOSED, RESPIRATIONS REGULAR AND UNLABORED.
--- NOTE | 2017-06-16 07:15 | NUR ---
BEDSIDE REPORT RECIEVED FROM GEOVANNY ODELL. PT REPORTED THAT HE HAS HAD DIFFICULTY SLEEPING FOR SEVERAL NIGHTS. ALSO REPORTED THAT HE FEELS CONSTIPATED, AND THAT HE CAN NOT STRAIN THIS CAUSES HIS HEADACHE TO INCREASE. NOTIFIED DR. FISHER OF THIS.
--- NOTE | 2017-06-16 08:18 | NUR ---
PT ASSISTED UP TO RECLINER, EATING BREAKFAST. PT C/O 03/25 HEADACHE AND BACK PAIN, REPORTED THAT PAIN TO RIGHT LEG LESS THAN 10. GAVE IMATREX AND ULTRAM PRN.
--- NOTE | 2017-06-16 08:49 | NUR ---
PT UP TO BATHROOM WITH FWW WITH 1 PERSON STANDBY ASSIST.
--- NOTE | 2017-06-16 10:36 | NUR ---
GAVE PT FIORICET 1 TAB PO PRN FOR CONTINUED C/O MIGRAINE HEADACHE, PT RATED PAIN 5/10. PT SITTING UP IN RECLINER, TALKING ON PHONE. DENIED OTHER NEEDS.
--- NOTE | 2017-06-16 12:16 | NUR ---
PHYSICAL THERAPIST REPORTED TO THIS RN THAT SHE WORKED WITH PT, AND THAT HE PRACTICED THE STAIRS. REPORTED TO THIS RN THAT SHE FEELS PT WOULD BENEFIT FROM FURTHER PHYSICAL THERAPY HERE.
--- NOTE | 2017-06-16 12:57 | NUR ---
PT REPORTS THAT MIGRAINE HAS RESOLVED. REPORTED 5/10 PAIN TO BACK AND RIGHT HIP. GAVE TRAMADOL 50 MG PO PRN. PROVIDED FRESH ICE WATER FOR PT. PT AT 75% OF LUNCH. DENIED OTHER NEEDS. IS CURRENTLY SITTING UP IN RECLINER.
--- NOTE | 2017-06-16 15:30 | NUR ---
PT C/O BACK PAIN. GAVE WARM PACK. PT REQUESTED FIORICET TO KEEP MIGRAINE AT BAY. PT DENIED OTHER NEEDS. VISITING WITH FAMILY. PT SITTING UP IN RECLINER.
--- NOTE | 2017-06-16 17:17 | NUR ---
PT SITTING UP IN RECLINER. FAMILY VISITING PT. PROVIDED PT WITH FRESH ICE WATER. PT DENIED OTHER NEEDS.
--- NOTE | 2017-06-16 18:00 | NUR ---
PT UP IN RECLINER MOST OF SHIFT. PT FOLLOWED TTWB RESTRICTIONS, USED FWW WITH MINIMAL TO 1 PERSON ASSIST WHEN UP AMBULATING. C/O MIGRAINE, GIVEN IMITREX X 1 DOSE, THEN FIORICET X 2 DOSES FOR THIS, AND PT REPORTS MIRAINE IS NOW RESOLVED. PT HAS CHRONIC BACK PAIN, AND ACUTE PAIN TO RIGHT HIP FROM RIGHT FEMUR FX, RECIEVED TRAMADOL PRN X 2 DOSES, LAST AT 1257. PT ON SOFT DIET, APETITE GOOD. HAS NO IV ACCESS, IS A SWING BED PT.
--- NOTE | 2017-06-16 20:30 | NUR ---
PT CALLED, STANDBY ASSIST UP TO BATHROOM WITH FWW. PT TOLERATED WELL. SMALL BM NOTED. LIDODERM PATCH REMOVED. PT REQUEST MEDICATION TO BE GIVEN 2200 TO HOPEFULLY IMPROVE SLEEP. PT ASSISTED BACK TO CHAIR. WARM BLANKET GIVE. ASSESSMENT COMPLETE. CHOCOLATE PUDDING REQUESTED AND GIVEN. NO FURTHER NEEDS AT THIS TIME. PT UP IN CHAIR WATCHING TV, CALL LIGHT IN REACH.
--- NOTE | 2017-06-16 22:00 | NUR ---
IN TO GIVE PM MEDICATIONS. PT UP TO BATHROOM WITH FWW AND STANDBY ASSIST. TOLERATED WELL. PT ASSISTED BACK TO BED. SLEEP AID GIVEN. PT REQUEST ULTRAM AND FIORICET FOR BACK AND NECK PAIN. MEDICATIONS GIVEN. PT IN BED. BLINDS AND DOOR CLOSED TO AID IN SLEEP.
--- NOTE | 2017-06-16 23:11 | NUR ---
NO VITAL SIGNS WHEN PATIENT IS ASLEEP PER NURSE.
--- NOTE | 2017-06-17 01:44 | NUR ---
LOTION APPLIED ON HIS BACK PER PATIENT'S REQUEST TO RELIEVE ITCHINESS. EMPTIED THE URINAL. VITAL SIGNS AND INTAKE AND OUTPUT DONE.
--- NOTE | 2017-06-17 01:50 | NUR ---
PT AWAKE, ASSIST UP TO RESTROOM WITH KESHA ASSIST FROM COVER STRIPPER. PT REQUEST ULTRAM AND FIORCET FOR BACK PAIN/BARRON OVER THE R EYE. MEDICATION GIVEN. VITALS OBTAINED, PT WITH ELEVATED BP. PT STATES HE NORMALLY TAKES MEDICATION FOR BP AT HOME. WILL NOTE TO ASK MD. NO FURTHER NEEDS AT THIS TIME. CALL LIGHT IN PLACE.
--- NOTE | 2017-06-17 03:51 | NUR ---
PT CALLED REQUESTING EAR PLUGS TO BLOCK NOISE FROM THE UNIT. EAR PLUGS GIVEN. NO FURTHER NEEDS AT THIS TIME. CALL LIGHT IN REACH.
--- NOTE | 2017-06-17 04:48 | NUR ---
PATIENT CALLED. URINAL EMPTIED.
--- NOTE | 2017-06-17 05:25 | NUR ---
PT ABLE TO REST INTERMITTENTLY THROUGH OUT SHIFT WITH HELP OF SLEEP AID. PT ABLE TO FOLLOW TTWB WITH USE OF FWW AND STANDBY ASSIST. ULTRAM AND FIORICET GIVEN X2 FOR BACK PAIN/ BARRON ABOVE R EYE. NO ACUTE PAIN IN R HIP NOTED. SM BM NOTED ON SHIFT, MIRALAX GIVEN. LUNGS ARE CLEAR. NO IV ACCESS. NOTED ELEVATED BP (155/77, 161/86), PT STATES HE TAKES LISINOPRIL FOR BP. ON ADMISSION H&P LISINOPRIL HELD.
--- NOTE | 2017-06-17 06:49 | NUR ---
PT WOKE EASILY FOR HIS MEDICATION. REQUESTED AND RECEIVED FRESH ICE WATER. DENIES NEEDS AT THIS TIME.
--- NOTE | 2017-06-17 07:20 | NUR ---
RECIEVED BEDSIDE REPORT FROM GEOVANNY ISLAS. PT AWAKE, ALERT. DENIED NEEDS.
--- NOTE | 2017-06-17 07:58 | NUR ---
HELPED GET UP AND WENT INTO THE BATHROOM AND DID AM CARE AND NOW SITTING UP IN CHAIR EATING BREAKFAST.
--- NOTE | 2017-06-17 08:49 | NUR ---
PT REQUESTED IMITREX TO PREVENT RETURN OF MIGRAINE. GAVE IMITREX PRN. PT C/O 02/23 PAIN TO BACK AND TO RIGHT HIP. GAVE TRAMADOL 50 MG PO PRN. OTHER AM MEDICATIONS GIVEN WELL. PT ATE APROXIMATELY 50% OF BREAKFAST. IS CURRENTLY WORKING WITH OCCUPATIONAL THERAPIST, PHYSICAL THERAPIST IS IN ROOM, WAITING TO WORK WITH PT AFTER OCCUPATIONAL THERAPY.
--- NOTE | 2017-06-17 10:28 | NUR ---
PT SITTING UP IN RECLINER. PROVIDED WITH NEW WARM PACK FOR C/O CHRONIC BACK PAIN. PT REPORTS RELIEF WITH WARM PACK USE. PT ASSISTED UP TO BATHROOM WITH FWW WITH 1 PERSON ASSIST.
--- NOTE | 2017-06-17 11:14 | NUR ---
PT REPORTS 5/10 PAIN TO RIGHT HIP AND BACK. GAVE ACETAMINOPHEN 650 MG PO PRN. PT SITTING UP IN RECLINER, VISITING WITH SPIRITUAL CARE, FATUMA Lozano
--- NOTE | 2017-06-17 12:05 | NUR ---
PT MAY BE DC'D TODAY. HE WAS DRESSED, SITTING UP IN CHAIR. HE IS ALERT AND ORIENTED ASKING QUESTIONS ABOUT CELL PHONES. HE SHARED A BLESSING THAT CAME HIS WAY THIS PAST WEEKEND THAT HE SAID, "HELPED ME FORGET ABOUT MYSELF FOR A WHILE"! GOOD VISIT, PT REQUESTED PRAYER, GEOVANNY CHOWDHURY CAME IN TO GIVE MEDS. PT EXPRESSED HIS PLEASURE WITH THE CARE HE HAS RECEIVED
--- NOTE | 2017-06-17 13:49 | NUR ---
PT SITTING UP IN RECLINER, TALKING WITH FAMILY AND FRIENDS. CARTER Gold, MUSIC TYPOGRAPHER IN TO SEE PT NOW. PT C/O 02/23 PAIN TO RIGHT HIP AND BACK.
--- NOTE | 2017-06-17 14:43 | NUR ---
TOOK A SHOWER AROUND 12:30 THAN GOT DRESSED. NOW VISITING WITH FAMILY. ALSO UP IN CHAIR.
--- NOTE | 2017-06-17 15:09 | NUR ---
PT C/O 6/10 PAIN TO BACK, 5/10 PAIN TO RIGHT HIP. GAVE ACETAMINOPHEN 650 MG PO PRN. PT PROVIDED WITH WARM PACK FOR BACK, WELL FRESH ICE WATER. PT AND FAMILY VISITING WITH FRIENDS.
--- NOTE | 2017-06-17 15:25 | NUR ---
FAXED CHART NOTES INCLUDING FACESHEET, ORDER, H AND P, PROG NOTES, PT NOTES TO [facility] TO OBTAIN A FRONT WHEELED WALKER FOR PT.
--- NOTE | 2017-06-17 15:28 | NUR ---
PATIENT IS DRESSED AND READY TO GO. IN ROOM. PROVIDED PATIENT WITH HANDOUT ON NUTRITION THERAPY FOR PEPTIC ULCER DISEASE. HE SAID HE HAD THIS 30 YEARS AGO. I REMINDED HIM OF SOME FOODS THAT MAY CAUSE DISCOMFORT AND TO STAY AWAY FROM. HE IS NOT A COFFEE DRINKER. MY NAME AND OFFICE # PROVIDED IN CASE THEY THINK OF QUESTIONS DOWN THE ROAD.
--- NOTE | 2017-06-17 17:23 | NUR ---
PT C/O HEADACHE, 02/23, STATED THAT HIS HEADACHE WAS TURNING INTO A MIGRAINE. GAVE PT FIORICET 1 TAB PO PRN. PT HAS NOW HAD 6 TABS OF MEDICATION THAT HAS ACETAMINOPHEN INCLUDED, NO FURTHER ACETAMINOPHEN OR FIORCET TO BE GIVEN IN THIS 24 HOUR PERIOD. NOTIFIED PT OF THIS, PT VERBALIZED UNDERSTANDING. PT SITTING UP IN RECLINER AT THIS TIME.
--- NOTE | 2017-06-17 18:38 | NUR ---
PT CONTINUES TO HAVE CHRONIC BACK PAIN, WELL ACUTE PAIN TO RIGHT HIP FROM RIGHT FEMUR FX. ACETAMINOPHEN AND TRAMADOL GIVEN PRN PAIN. UP WITH FWW WITH MINIMAL 1 PERSON ASSIST. FAMILY AND FRIENDS AT SIDE THROUGHOUT SHIFT. PT HAD HEADACHE THIS AFTERNOON, TOOK FIORICET 1 TAB PO PRN FOR THIS. HAS REACHED HIS MAXIMUM OF 6 TABS ACETAMINOPHEN FOR THIS 24 HOUR PERIOD.
--- NOTE | 2017-06-17 19:30 | NUR ---
RECEIVED REPORT FROM RN. PATIENT DENIES NEEDS AT THIS TIME.
--- NOTE | 2017-06-17 20:01 | NUR ---
EVENING MEDICATIONS GIVEN AND SHIFT ASSESSMENT DONE. PATIENT DENIES NEEDS AT THIS TIME. REPORTS 6/10 LOWER BACK PAIN. DENIES NEED FOR PAIN MEDICATION.
--- NOTE | 2017-06-17 23:27 | NUR ---
PATIENT RESTING COMFORTABLY IN BED. HE DENIES ANY NEEDS AT THIS TIME. CALL LIGHT WITHIN REACH.
--- NOTE | 2017-06-18 03:01 | NUR ---
PATIENT REPORTS 6/10 LOWER BACK PAIN AND TROUBLE SLEEPING. PRN PO TRAMADOL GIVEN AND SLEEP AID GIVEN PER EMAR. PATIENT DENIES OTHER NEEDS AT THIS TIME. CALL LIGHT WITHIN REACH.
--- NOTE | 2017-06-18 05:26 | NUR ---
assisted pt to chair. tolerated transfer with fww using toe-touch weight bearing on right leg and standby assist well. gave warm blanket. gave warm pack for pt's back. call light in reach. no further needs.
--- NOTE | 2017-06-18 05:57 | NUR ---
PATIENT SITTING UP IN CHAIR WATCHING TV. PATIENT DENIES NEEDS AT THIS TIME. CALL LIGHT WITHIN REACH.
--- NOTE | 2017-06-18 06:04 | NUR ---
PATIENT'S NIGHT WAS UNEVENTFUL. HE HAS BEEN RESTING COMFORTABLY IN BED ALL NIGHT. VSS, PAIN CONTROLED WITH PRN TRAMADOL PER EMAR. HE IS A 1PA/FWW. NO ACUTE CHANGES FROM BEGINNING OF SHIFT ASSESSMENT. INTENTIONAL ROUNDING DONE WITH ALL PATIENT'S NEEDS MET.
--- NOTE | 2017-06-18 06:39 | NUR ---
ASSISTED PT BACK TO CHAIR FROM THE BATHROOM. TOLERATED WELL, TIP TOE WEIGHT BEAR. HAD NO COMPLAINTS. CALL LIGHT WITHIN REACH. PLEASANT AND COOPERATIVE.
--- NOTE | 2017-06-18 06:59 | NUR ---
PATIENT REPORTS 6/10 LOWER BACK/RIGHT HIP PAIN. PRN TRAMADOL GIVEN PER EMAR. PATIENT DENIES OTHER NEEDS AT THIS TIME.
--- NOTE | 2017-06-18 07:20 | NUR ---
BEDSIDE REPORT RECIEVED FROM GEOVANNY CHAIDEZ. PT AWAKE, ALERT, ORIENTED X 4. DENIED NEEDS.
--- NOTE | 2017-06-18 07:59 | NUR ---
HELPED PATIENT A LITTLE BIT TO GET DRESSED AND IS EATING BREAKFAST. THAN AFTER BREAKFAST WILL DO AM CARE. REFUSED SHOWER TODAY.
--- NOTE | 2017-06-18 09:04 | NUR ---
PT SITTING UP IN RECLINER. REPORTS 5/10 PAIN TO RIGHT HIP, 6/10 PAIN TO BACK, DECLINES FURTHER ANALGESICS AT THIS TIME. DENIES HEADACHE. CMS TO RLE INTACT WITH EXCEPTION OF CHRONIC NUMBNESS TO RIGHT FOOT. TRACE EDEMA TO BILATERAL ANKLES NOTED, PT ENCOURAGED TO ELEVATE FEET. PT DENIED OTHER NEEDS. REFUSED MIRILAX, STATED THAT HE HAS HAD 2 LOOSE BMs OVER SWEATBAND SHAPER.
--- NOTE | 2017-06-18 10:04 | NUR ---
BROUGHT PATIENT A HOT PACK FOR BACK.
--- NOTE | 2017-06-18 11:26 | NUR ---
FRONT WHEELED WALKER WAS DELIVERED BY [facility].
--- NOTE | 2017-06-18 11:39 | NUR ---
PT SITTING UP IN RECLINER, TALKING TO FRIEND. DENIES NEEDS.
--- NOTE | 2017-06-18 12:40 | NUR ---
PT C/O HEADACHE, 6/10 PAIN. GAVE FIORICET 1 TAB PO PRN. PT ATE 60% OF LUNCH. DENIED OTHER NEEDS.
--- NOTE | 2017-06-18 13:53 | NUR ---
PT [id number] TO BE DC'D TODAY. HIS AND DAUGHTER ARE NITIN. WORKING WITH Alek. VERY KIND WORDS TO SAY IN REGARDS TO THE STAFF, AND THE CARE HE RECEIVED. PRAYED WITH PT, WILL FOLLOW NEEDED
[2017-06-18] MEDS ORDERED: OMEPRAZOLE20 MG PO (14:16)
[2017-06-18] MEDS ORDERED: GABAPENTIN100 MG PO (14:17)
[2017-06-18] MEDS ORDERED: TRAMADOL HCL50 MG PO (14:22)
[2017-06-18] MEDS ORDERED: TAMSULOSIN HCL0.4 MG PO (14:22)
--- NOTE | 2017-06-18 14:27 | NUR ---
PT SITTING UP IN RECLINER, FAMILY AT SIDE. PT DENIES NEEDS, REPORTS THAT HE IS READY TO DISCHARGE ONCE HE RECIEVES DISCHARGE INFORMATION.
--- NOTE | 2017-06-18 14:32 | NUR ---
DR. FISHER ENTERED ORDER FOR PT TO HAVE FLU VACCINE. ASKED PT IF HE WANTED THIS, PT REPORTED THAT HE HAS ALREADY RECIEVED HIS FLU SHOT THIS SEASON, REPORTED THAT HE RECIEVED IT AT [facility].
--- NOTE | 2017-06-18 14:40 | NUR ---
DISCHARGE INSTRUCTIONS GIVEN TO PT. QUESTIONS ASKED AND ANSWERED, PT AND FAMILY VERBALIZED UNDERSTANDING.
--- NOTE | 2017-06-18 15:26 | NUR ---
RANULFO, PHARMACIST REPORTED TO THIS RN THAT SHE GAVE MEDICATION EDUCATION TO PT.
--- NOTE | 2017-06-25 14:30 | NUR ---
UPDATED BY STAFF TODAY THAT PATIENTS DAUGHTER CALLED AND WAS CONCERNED BECAUSE PATIENT WAS OUT OF THE TRAMADOL ORDERED FOR HIS PAIN. DAUGHTER WAS WANTING A REFILL. CALLED [facility]. PATIENTS PCP RETIRED LAST WEEK, THEY HAVE DECIDED THEY HAVE NO PROVIDER WILLING TO TAKE PATIENT AT THIS TIME. ASKED IF THEY COULD REFILL THE TRAMADOL. MESSAGE WAS LEFT FOR PROVIDERS. CALLED DR ATKINSON OFFICE HE WAS ORTHO CONSULT FOR THIS PATIENT DURING STAY. MESSAGE LEFT FOR DR ATKINSON TO SEE IF HE COULD REORDER MEDICATION FOR PATIENT. WAS UPDATED BY KRISTOFER, MEDICAL FLOOR CYBER SECURITY INSTRUCTOR WHO STATED PATIENTS DAUGHTER CALLED AGAIN STATING DR ATKINSON IS GOING TO COVER PATIENTS MEDICATIONS. SPOKE WITH JAIME DAVE FROM [facility]. WE DISCUSSED HER TO CONTINUE TO HELP PATIENT LOOK FOR POSSIBLE NEW PCP IN AREA. SHE STATES SHE WILL AND WILL CONTACT PATIENT AT HOME.
== END 2017-06-18 15:35 | disposition home or self-care (01) | DRG 535 ==
LOC: MS 11:55
PROVIDERS: ADMIT Internal Medicine
PROC: 30233N1 Transfusion of Nonautologous Red Blood Cells into Peripheral Vein, Percutaneous Approach (ICD-10-PCS; principal; 2017-06-13)
DX: S72.141A Displaced intertrochanteric fracture of right femur, initial encounter for closed fracture (principal); K27.4 Chronic or unspecified peptic ulcer, site unspecified, with hemorrhage; D62 Acute posthemorrhagic anemia; T39.395A Adverse effect of other nonsteroidal anti-inflammatory drugs [NSAID], initial encounter; W19.XXXA Unspecified fall, initial encounter; M54.9 Dorsalgia, unspecified; M54.2 Cervicalgia; I10 Essential (primary) hypertension; R55 Syncope and collapse; K21.9 Gastro-esophageal reflux disease without esophagitis; J01.90 Acute sinusitis, unspecified; J32.9 Chronic sinusitis, unspecified
CPT/HCPCS: 97110; 97116; 97161; 97165; 97530; 97535

== ENCOUNTER 2017-08-16 10:53 | Day surgery (SDC) | payer MEDICARE ==
[~2017-08-16] VITALS: Ht 167.6 cm; Wt 73.0 kg
[~2017-08-16 10:53] MED LIST changes: +GABAPENTIN100 MG PO; +TAMSULOSIN HCL0.4 MG PO; +TRAMADOL HCL50 MG PO
[2017-08-16] MEDS ORDERED: CATAPRES0.1 MG PO (12:23)
--- NOTE | 2017-08-16 15:03 | NUR ---
08/16/17 1503 Holly Zhao 1451 PT HAS IV IN RIGHT HAND, INFUSING AND CDI. 1500 O2 SAT 100%, O2 REMOVED.
--- NOTE | 2017-08-20 11:14 | OR ---
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 POSTOPERATIVE DIAGNOSES: 1. Healed prepyloric ulcer. 2. Chronic duodenitis. PROCEDURE: Esophagogastroduodenoscopy with biopsy. ANESTHESIA: Intravenous sedation, Fentanyl 100 mcg, Versed 4 mg. INDICATION: This 77-year-old white man is a patient of Vincent Richardson PA-C in [place], [place], and Dr. Huber Correa, orthopedist. In May, he suffered significant gastrointestinal bleeding related to prepyloric ulcer related to persistent nonsteroidal medication use. This was in part related to withdrawal of his chronic pain medication and persistent chronic pain syndrome, self-medicated with Motrin and diclofenac. He was treated with Carafate as well as PPI medication. He continues to take the PPI medication (omeprazole). He is having no pain and no GI bleeding, but does have somewhat significant unusual sensation in the epigastric area. He is admitted to undergo upper endoscopy to assess for test of cure regarding the ulcer. He understands risks of bleeding, infection, and perforation and wished to proceed. FINDINGS: The ulcer did appear to be healed. There was chronic duodenitis. The flap valve was normal as was the esophagus. CLOtest was negative. No evidence of H pylori. DESCRIPTION OF PROCEDURE: The patient was brought to the endoscopy suite, given topical Hurricaine spray hypopharyngeal anesthesia and placed in lateral decubitus position. A bite block was placed after satisfactory intravenous sedation was administered with full cardiopulmonary monitoring. An Olympus video upper endoscope was then passed in the esophagus. The vocal cords appeared normal. Scope was advanced into the esophagus without problem. The Electronically Signed By: ROSLYN LOZOYA MD 08/20/17 1114 PATIENT NAME: SUBHA GONZALEZ OPERATIVE REPORT DATE OF : 36 PHYSICIAN: ROSLYN LOZOYA MD REPORT #: [id number] REPORT IS CONFIDENTIAL AND NOT TO BE RELEASED WITHOUT AUTHORIZATION [facility] [address], [place] [address] Signed esophagus appeared normal. Scope was passed to the stomach, which was insufflated with air. Rugal folds were normal. The antrum and prepyloric area were normal with no sign of ulceration. Careful passage through the pylorus into the duodenum confirmed chronic duodenitis of both the bulbar and 2nd and 3rd portions, but no sign of ulceration. Biopsies were obtained. Scope was withdrawn. Careful inspection of the pyloric channel as well as the prepyloric antrum again showed no evidence of ulceration. Biopsies were obtained for both ALIYAH and pathologic testing. Retroflexed view was undertaken, confirming a normal flap valve. The scope was withdrawn to the distal esophagus, which was normal. Careful withdrawal of scope showed no other abnormalities. The scope was removed. The patient was taken to the recovery room in good condition. CONCLUDING DIAGNOSIS: Healed prepyloric ulcer. Chronic duodenitis. The patient is at risk of peptic disease once again and should avoid NSAIDs and continue with his PPI medication, which on balance of the various risks associated with its use would favor continued use at this point. Roslyn Lozoya MD JM/MODL /[id number] cc: VASQUEZ Arellano Jr, MD Electronically Signed By: ROSLYN LOZOYA MD 08/20/17 1114 PATIENT NAME: SUBHA GONZALEZ OPERATIVE REPORT DATE OF : 36 PHYSICIAN: ROSLYN LOZOYA MD REPORT #: [id number] REPORT IS CONFIDENTIAL AND NOT TO BE RELEASED WITHOUT AUTHORIZATION
== END 2017-08-16 15:33 | disposition home or self-care (01) ==
LOC: OPS 10:53 → DS 10:53 → OPS 11:15
PROVIDERS: Surgery
PROC: 0DB78ZX Excision of Stomach, Pylorus, Via Natural or Artificial Opening Endoscopic, Diagnostic (ICD-10-PCS; 2017-08-16)
PROC: 0DB98ZX Excision of Duodenum, Via Natural or Artificial Opening Endoscopic, Diagnostic (ICD-10-PCS; principal; 2017-08-16 11:15)
DX: K29.80 Duodenitis without bleeding (principal); K21.9 Gastro-esophageal reflux disease without esophagitis; I10 Essential (primary) hypertension; G40.909 Epilepsy, unspecified, not intractable, without status epilepticus; F32.9 Major depressive disorder, single episode, unspecified; Z88.8 Allergy status to other drugs, medicaments and biological substances; Z88.7 Allergy status to serum and vaccine; Z96.643 Presence of artificial hip joint, bilateral
CPT/HCPCS: 88305; 99152; 99153; J0690; J2250; J3010; J7120